=== PATIENT | male | born 1980 | race Caucasian/White ===

== ENCOUNTER 2018-10-04 21:07 | Emergency (ER) | payer BC ==
[2018-10-05] MEDS ORDERED: oxyCODONE/Acetamin 5/325 MG* TAB ONE (02:13)
[2018-10-05] MEDS ORDERED: oxyCODONE/Acetamin 5/325 MG* TAB PO ONE (02:15)
[2018-10-05] MEDS ORDERED: Lidocaine 2% MPF* 2 ML VIAL ONE (02:17)
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
[2018-10-05] MEDS ORDERED: Silver Nitrate/Potassium Nitr* 1 EA STICK ONE (02:49)
[2018-10-05] MEDS ORDERED: Lidocaine 2% PF * 5 ML VIAL INJ ONE (03:20)
[2018-10-05] MEDS ORDERED: Silver Nitrate/Potassium Nitr* 1 EA STICK TOPICAL ONE (03:22)
[2018-10-05] MEDS ORDERED: Clindamycin CAP* 150 MG PO ONE (03:28)
[2018-10-05 04:35] VITALS: BP 130/94
== END 2018-10-05 02:20 | disposition home or self-care (01) ==
LOC: ED 21:07
DX: S61.211A Laceration without foreign body of left index finger without damage to nail, initial encounter (principal); W45.8XXA Other foreign body or object entering through skin, initial encounter
CPT/HCPCS: 12001; 96372; 99283; A9270-GY

== ENCOUNTER 2018-10-21 06:21 | Day surgery (SDC) | payer BC ==
[~2018-10-21 06:21] MED LIST: Buffered Lidocaine 1% SYRIN* 1 ML/SYRINGE INTRADERM ONE; Lactated Ringers 1000 ML Bag* 1,000 ML IV SCH; Sodium Citrate/Citric Acid* 15 ML UDC PO ONE
[2018-10-21] MEDS ORDERED: ceFAZolin 2 GM in NS PREMIX(*) 2 GM/100 ML BAG IVPB ONE (06:57)
[2018-10-21] MEDS ORDERED: Sodium Citrate/Citric Acid* 15 ML UDC ONE (06:57)
[2018-10-21] MEDS ORDERED: Lidocaine 1% INJ* 10 MG/ML 30 ML SDV ONE (06:59)
[2018-10-21] MEDS ORDERED: fentaNYL* 50 MCG/ML 2 ML VIAL (100 MCG VIAL) ONE (07:24)
[2018-10-21] MEDS ORDERED: Midazolam* 1 MG/ML 5 ML VIAL (5 MG) ONE (07:24)
[2018-10-21] MEDS ORDERED: Naloxone* 0.4 MG/ML 1 ML VIAL IV PRN (07:28)
[2018-10-21] MEDS ORDERED: Propofol* 10 MG/ML 20 ML BTL ONE (08:46)
[2018-10-21] MEDS ORDERED: Lidocaine 2% PF * 5 ML VIAL ONE (08:46)
[2018-10-21 09:23] VITALS: BP 137/88
--- NOTE | 2018-10-21 11:52 | OP ---
DATE OF OPERATION: 10/21/18 - [facility] DATE OF : 82 SURGEON: Loida Guo MD [employer] REPAIRER: ERIK Dhillon ANESTHESIA: Local MAC. PRE-OP DIAGNOSIS: Left index finger laceration with ulnar digital nerve laceration. POST-OP DIAGNOSIS: Left index finger laceration with ulnar digital nerve laceration. OPERATIVE PROCEDURE: Left index finger exploration, debridement, skin graft from the wrist and nerve conduit. ESTIMATED BLOOD LOSS: Zero. TOURNIQUET TIME: Almost an hour. INDICATION FOR PROCEDURE: Tae is a 38-year-old male who suffered an injury of his left index finger. He has skin loss and marked decreased sensation on the ulnar aspect of his index finger with presumed digital nerve laceration. He has normal sensation in the radial aspect of his index finger. He presents for wound exploration, possible nerve repair, possible nerve graft. DESCRIPTION OF PROCEDURE: The patient was brought to the operating room, was given a sedation anesthetic and a digital block with 10 cc of 1% plain lidocaine. The skin of his left upper extremity was prepped and draped in the usual sterile fashion. The hand and forearm were exsanguinated and tourniquet elevated to 250 mmHg. The sutures were removed and the wound was carefully explored. The flexor tendons were intact. There were some necrotic tissue and this was thoroughly debrided. The radial digital neurovascular bundle was explored and appeared intact. The ulnar digital nerve was lacerated and in fact there was a 1 cm gap between the two ends after freshening of the nerve ends. There was a large skin defect as well directly over the flexor tendon. An AxoGen nerve conduit 4 x 15 mm was secured to both ends of the digital nerve and fit nicely on the distal end, was slightly large on the proximal end, but contained the nerve very nicely. This was secured with 8-0 nylon suture on both ends. An elliptical incision measuring 2 x 2 cm was made at the distal wrist crease and a full thickness skin flap was raised and then transferred to the skin defect overlying the flexor tendon. This was secured with 4-0 nylon suture. The edges of the donor site were underlined and then easily closed with a primary closure using 4-0 nylon suture. The wound was irrigated prior to closure. The wounds were dressed with Xeroform, 4x4s, Webril, Coban and a dorsal extension blocking splint of Alumafoam for the index finger. The patient tolerated the procedure well and was brought to the recovery room in good condition. [id number]/[facility] #: [id number] [facility]
== END 2018-10-21 09:55 | disposition home or self-care (01) ==
LOC: OREAST 06:21
PROVIDERS: ATTEND Orthopaedic Surgery
DX: S64.491A Injury of digital nerve of left index finger, initial encounter (principal); S61.211A Laceration without foreign body of left index finger without damage to nail, initial encounter; X58.XXXA Exposure to other specified factors, initial encounter; Y92.9 Unspecified place or not applicable; Y99.9 Unspecified external cause status
CPT/HCPCS: A9270-GY; C1776; J0690; J2250; J2704; J3010